=== PATIENT | male | born 1950 | race Caucasian/White ===

== ENCOUNTER → 2016-08-07 | Outpatient (CLI) | payer OTHER ==
--- NOTE | 2016-08-07 11:33 | DIAGNOSTIC IMAGING REPORT ---
PARANASAL SINUSES 5 VIEWS CLINICAL HISTORY: Rhinorrhea. FINDINGS: 5 views of the paranasal sinuses are obtained. No prior studies are available for comparison at the time of dictation. The paranasal sinuses are clear as imaged. No air-fluid levels are suggested. The bony orbits appear intact. The mastoid air cells are clear as visualized. The imaged calvarium appears intact. IMPRESSION: There is no radiographic evidence of paranasal sinus disease. Electronically signed by: Celestino Toscano M.D. 08/07/2016 11:32 AM Dictated Date/Time: 08/07/2016 11:31 AM
[2016-08-07 14:28] LABS: CHOLESTEROL/HDL RATIO 3.8; THYROID STIMULATING HORMONE 2.78 uIu/ml (0.300-4.500)
== END | disposition home or self-care (01) ==
LOC: C.RADBC 11:01
PROVIDERS: ATTEND Internal Medicine Geriatric Medicine
DX: J34.89 Other specified disorders of nose and nasal sinuses (principal); E03.9 Hypothyroidism, unspecified

== ENCOUNTER → 2017-04-22 | Outpatient (CLI) | payer OTHER ==
[2017-04-22 19:16] LABS: LYME DISEASE AB IGG NEG (NEG); LYME DISEASE AB IGM NEG (NEG)
== END | disposition home or self-care (01) ==
LOC: C.LABBFT 14:42
PROVIDERS: ATTEND Internal Medicine Geriatric Medicine
DX: T14.8XXA Other injury of unspecified body region, initial encounter (principal); W57.XXXA Bitten or stung by nonvenomous insect and other nonvenomous arthropods, initial encounter